=== PATIENT | male | born 1980 | race African-American/Black ===

== ENCOUNTER 2018-11-28 09:32 | Inpatient (IN) | payer MEDICAID, OTHER ==
[~2018-11-28] VITALS: Ht 182.9 cm; Wt 92.6 kg
[2018-11-28] MEDS ORDERED: IPRATROPIUM/ALBUTEROL 0.5-3(2.5)MG/3ML NEB HHN ONE (12:15)
[2018-11-28] MEDS ORDERED: KETOROLAC 30MG/ML VIAL IV ONE (12:15)
[2018-11-28] MEDS ORDERED: LABETALOL 5MG/ML SYR 20 MG/4 ML SYRINGE IV ONE (12:30)
[2018-11-28 12:38] LABS: BASOPHILS % 1.3 % (0.0-2.0); EOSINOPHILS % 4.3 % (0.0-5.0); HEMATOCRIT. 47.6 % (42.0-52.0); HEMOGLOBIN. 15.8 g/dL (14.0-18.0); LYMPHOCYTES % 30.4 % (20.0-50.0); MEAN CORPUSCULAR HEMOGLOBIN 28.6 pg (28.0-32.0); MEAN CORPUSCULAR VOLUME 85.9 fL (80.0-94.0); MEAN PLATELET VOLUME 7.7 fl (7.4-10.4); MONOCYTES % 12.5 % (2.0-8.0); NEUTROPHILS % 51.5 % (40.0-76.0); PLATELET 260 x1000/uL (130-400); RED BLOOD CELL COUNT 5.54 mill/uL (4.7-6.1); RED CELL DISTRIBUTION WIDTH 14.1 % (11.6-14.6)
[2018-11-28 12:43] LABS: CHLORIDE 112 mEq/L (98-107)
[2018-11-28 12:52] LABS: INR 1.2; PARTIAL THROMBOPLASTIN TIME 26.4 sec (23.4-31.0)
[2018-11-28] MEDS ORDERED: FUROSEMIDE 40MG/4ML VIAL IVP ONE (13:15)
[2018-11-28] MEDS ORDERED: CLONIDINE 0.1MG TABLET PO PRN (15:00)
[2018-11-28] MEDS ORDERED: IPRATROPIUM/ALBUTEROL 0.5-3(2.5)MG/3ML NEB HHN PRN (15:00)
[2018-11-28] MEDS ORDERED: ACETAMINOPHEN 325MG TABLET PO PRN (15:00)
[2018-11-28] MEDS ORDERED: FUROSEMIDE 40MG/4ML VIAL IVP SCH (15:00)
[2018-11-28] MEDS ORDERED: ONDANSETRON HCL 4MG/2ML INJ IV PRN (15:00)
[2018-11-28] MEDS ORDERED: CARVEDILOL 25MG TABLET PO NR (15:30)
[2018-11-28] MEDS ORDERED: AMLODIPINE 5MG TABLET PO NR (15:45)
[2018-11-28] MEDS ORDERED: LOSARTAN POTASSIUM 25 MG TABLET PO SCH (16:00)
[2018-11-28] MEDS ORDERED: LOSARTAN POTASSIUM 25 MG TABLET PO NR (17:15)
[2018-11-28 18:15] VITALS: BP 167/130
[2018-11-28] MEDS: FUROSEMIDE 40MG/4ML VIAL IVP SCH (18:39)
[2018-11-28 20:00] VITALS: BP 162/122
[2018-11-28 20:30] VITALS: BP 162/122
[2018-11-28] MEDS: AMLODIPINE 5MG TABLET PO SCH (20:35)
[2018-11-28] MEDS ORDERED: AMLODIPINE 5MG TABLET PO SCH (21:00)
[2018-11-28] MEDS ORDERED: PNEUMOCOCCAL 23-VAL P-SAC VAC 0.5 ML IM ONE (22:30)
[2018-11-28 23:14] LABS: CLARITY URINE CLEAR (CLEAR); COLOR URINE YELLOW (YELLOW); KETONES URINE NEGATIVE (NEGATIVE); LEUKOCYTE ESTERASE URINE NEGATIVE (NEGATIVE); NITRITE URINE NEGATIVE (NEGATIVE); OCCULT BLOOD URINE NEGATIVE (NEGATIVE); PROTEIN URINE NEGATIVE (NEGATIVE); SPECIFIC GRAVITY URINE 1.005 (1.005-1.030); UROBILINOGEN URINE 0.2 E.U./dL (0.2-1.0)
[2018-11-28 23:33] LABS: *AMPHETAMINES SCREEN URINE NEGATIVE (NEGATIVE); *BARBITURATES SCREEN URINE NEGATIVE (NEGATIVE); *BENZODIAZEPINES SCREEN URINE NEGATIVE (NEGATIVE); *COCAINE SCREEN URINE NEGATIVE (NEGATIVE); METHADONE URINE SCREEN NEGATIVE (NEGATIVE); OPIATES URINE SCREEN NEGATIVE (NEGATIVE)
[2018-11-28 23:34] LABS: CANNABINOID URINE SCREEN NEGATIVE (NEGATIVE); PHENCYCLIDINE URINE SCREEN NEGATIVE (NEGATIVE)
[2018-11-29] VITALS: BP 152/89
[2018-11-29 04:00] VITALS: BP 146/90
[2018-11-29] MEDS: FUROSEMIDE 40MG/4ML VIAL IVP SCH ×2 (06:21→19:01)
[2018-11-29 08:00] VITALS: BP 157/106
[2018-11-29] MEDS ORDERED: LOSARTAN POTASSIUM 25 MG TABLET PO SCH (09:00)
[2018-11-29] MEDS: AMLODIPINE 5MG TABLET PO SCH ×2 (09:57→20:58)
[2018-11-29] MEDS: LOSARTAN POTASSIUM 50 MG TABLET PO SCH ×2 (09:57→20:57)
[2018-11-29 10:42] LABS: HEMOGLOBIN 15.3 g/dL (14.0-18.0); MEAN CORPUSCULAR HEMOGLOBIN 28.7 pg (28.0-32.0); MEAN CORPUSCULAR VOLUME 86.1 fL (80.0-94.0); PLATELET 250 x1000/uL (130-400); RED BLOOD CELL COUNT 5.34 mill/uL (4.7-6.1); RED CELL DISTRIBUTION WIDTH 14.2 % (11.6-14.6)
[2018-11-29 12:00] VITALS: BP 144/110
[2018-11-29] MEDS: HYDRALAZINE HCL 25MG TABLET PO SCH ×2 (14:37→21:45)
[2018-11-29 16:00] VITALS: BP 149/111
[2018-11-29] MEDS ORDERED: ENOXAPARIN 40MG/0.4ML SYR SUBCUT SCH (18:00)
[2018-11-29 20:00] VITALS: BP 153/108
[2018-11-30] VITALS: BP 149/111
[2018-11-30 04:00] VITALS: BP 158/115
[2018-11-30 05:44] LABS: BASOPHILS % 1.2 % (0.0-2.0); EOSINOPHILS % 7.4 % (0.0-5.0); HEMATOCRIT. 45.2 % (42.0-52.0); LYMPHOCYTES % 31.9 % (20.0-50.0); MEAN CORPUSCULAR HEMOGLOBIN 28.8 pg (28.0-32.0); MEAN CORPUSCULAR VOLUME 86.6 fL (80.0-94.0); MEAN PLATELET VOLUME 8.2 fl (7.4-10.4); MONOCYTES % 11.8 % (2.0-8.0); NEUTROPHILS % 47.7 % (40.0-76.0); PLATELET 252 x1000/uL (130-400); RED BLOOD CELL COUNT 5.22 mill/uL (4.7-6.1); RED CELL DISTRIBUTION WIDTH 14.3 % (11.6-14.6)
[2018-11-30] MEDS: FUROSEMIDE 40MG/4ML VIAL IVP SCH (06:15)
[2018-11-30] MEDS: HYDRALAZINE HCL 25MG TABLET PO SCH (06:15)
[2018-11-30 08:00] VITALS: BP 133/95
[2018-11-30] MEDS ORDERED: CARVEDILOL 6.25 MG TABLET PO SCH (09:00)
[2018-11-30] MEDS: LOSARTAN POTASSIUM 50 MG TABLET PO SCH (09:17)
[2018-11-30] MEDS: AMLODIPINE 5MG TABLET PO SCH (09:17)
[2018-11-30 12:00] VITALS: BP 139/104
[2018-11-30] MEDS ORDERED: HYDRALAZINE HCL 50MG TABLET PO SCH (14:00)
[2018-11-30 16:04] VITALS: BP 149/101
== END 2018-11-30 16:40 | disposition home or self-care (01) | DRG 194 ==
LOC: ER 10:17 → 8WST 14:04 → EDBEDREQ 14:06 → ER 18:10
PROVIDERS: ADMIT Internal Medicine; ATTEND Internal Medicine
DX: I11.0 Hypertensive heart disease with heart failure (principal); E44.1 Mild protein-calorie malnutrition; E87.8 Other disorders of electrolyte and fluid balance, not elsewhere classified; I43 Cardiomyopathy in diseases classified elsewhere; M54.5 Low back pain; N28.9 Disorder of kidney and ureter, unspecified; I50.43 Acute on chronic combined systolic (congestive) and diastolic (congestive) heart failure; G89.29 Other chronic pain; I16.0 Hypertensive urgency; I45.81 Long QT syndrome; Z82.49 Family history of ischemic heart disease and other diseases of the circulatory system; Z91.14 Patient's other noncompliance with medication regimen; Z68.27 Body mass index [BMI] 27.0-27.9, adult; Z79.899 Other long term (current) drug therapy
CPT/HCPCS: 36415; 71045; 80048; 80061; 80305; 83036; 83735; 83880; 84443; 84484; 85027; 93005; 93306; 94640; 96374; 96375; 99291; J1650; J1885; J1940; J3490; J7620